=== PATIENT | female | born 1970 | race Caucasian/White ===

== ENCOUNTER 2019-11-02 18:05 | Emergency (ER) | payer OTHER ==
[~2019-11-02] VITALS: Ht 165.1 cm; Wt 77.1 kg
[2019-11-02 19:02] LABS: HEMATOCRIT 39.1 % (37.0-47.0); HEMOGLOBIN 13.1 gm/dL (12.0-15.0); MCH 30.8 pg (26.0-34.0); MCHC 33.5 g/dL (28.0-37.0); MCV 92.1 fL (80.0-100.0); PLATELET COUNT 116 thou/uL (150-400); RBC 4.25 mil/uL (4.20-5.00); RDW 19.6 % (10.5-14.5); WBC 6.9 thou/uL (4.0-11.0)
[2019-11-02 19:04] LABS: CALCIUM 10.6 mg/dL (8.5-10.1); CREATININE 1.1 mg/dL (0.6-1.0); POTASSIUM 3.1 mmol/L (3.5-5.1)
[2019-11-02 19:10] LABS: ALBUMIN 4.2 g/dL (3.4-5.0); DIRECT BILIRUBIN 0.1 mg/dL (<0.1-0.2); TOTAL BILIRUBIN 0.4 mg/dL (<0.1-1.0); TOTAL PROTEIN 8.2 g/dL (6.4-8.2)
[2019-11-02 19:33] LABS: PLATELET ESTIMATE SLIGHTLY DECREASED
[2019-11-02 19:35] LABS: ANISOCYTOSIS 2+; LARGE PLATELETS OCCASIONAL
[2019-11-02] MEDS ORDERED: CHLORDIAZEPOXID25 M1 PO (23:33)
[2019-11-02] MEDS ORDERED: ZOFRAN ODT4 MG PO (23:33)
[2019-11-02] MEDS ORDERED: PHENERGAN 25 MG25 M1 PO (23:33)
[2019-11-02 23:39] VITALS: BP 128/75
[2019-11-03 00:02] LABS: URINE BILIRUBIN NEGATIVE (Negative); URINE BLOOD TRACE (Negative); URINE CLARITY CLEAR; URINE COLOR YELLOW; URINE GLUCOSE-RANDOM* NEGATIVE (Negative); URINE KETONES NEGATIVE (Negative); URINE LEUKOCYTES-REFLEX 3+ (Negative); URINE NITRITE-REFLEX NEGATIVE (Negative); URINE PROTEIN (DIPSTICK) NEGATIVE (Negative); URINE SPECIFIC GRAVITY <= 1.005 (1.005-1.035); URINE UROBILINOGEN 0.2 E.U./dl (0.2-1.0)
[2019-11-03 00:23] LABS: BACTERIA-REFLEX 1-9 Few /HPF (None Seen); CASTS None Seen /LPF (None Seen); CRYSTALS None Seen /LPF (None Seen); MUCUS 0-3 Light strn/LPF (None Seen); SQUAMOUS 0-3 Few /LPF (0-3); URINE RBC 0-2 Rare /HPF (0-2)
[2019-11-03] MEDS ORDERED: KEFLEX500 M1 PO (00:49)
== END 2019-11-03 01:43 | disposition home or self-care (01) ==
LOC: ER 18:05
PROVIDERS: Emergency Medicine
DX: F10.10 Alcohol abuse, uncomplicated (principal); R11.2 Nausea with vomiting, unspecified; Z98.890 Other specified postprocedural states; Y90.9 Presence of alcohol in blood, level not specified

== ENCOUNTER 2019-12-28 21:22 | Emergency (ER) | payer OTHER ==
[~2019-12-28] VITALS: Ht 162.6 cm; Wt 81.7 kg
[~2019-12-28 21:22] MED LIST: CHLORDIAZEPOXID25 M1 PO; KEFLEX500 M1 PO; PHENERGAN 25 MG25 M1 PO; ZOFRAN ODT4 MG PO
[2019-12-28] MEDS ORDERED: CYCLOBENZAPRINE10 MG PO (21:50)
[2019-12-28] MEDS ORDERED: BUPROPION XL300 MG PO (21:51)
[2019-12-28] MEDS ORDERED: SPIRONOLACTONE50 MG PO (21:51)
[2019-12-28] MEDS ORDERED: IBUPROFEN 800800 M1 PO (21:51)
[2019-12-28] MEDS ORDERED: SEROQUEL 100 M100 MG PO (21:53)
[2019-12-28] MEDS ORDERED: AMOXIL 875 MG875 M2 PO (21:53)
[2019-12-28 22:37] LABS: ABSOLUTE NEUTROPHILS 7.2 thou/uL (1.4-8.2); BASOPHILS 0.3 % (0.0-2.0); HEMATOCRIT 37.2 % (37.0-47.0); HEMOGLOBIN 12.5 gm/dL (12.0-15.0); LYMPHOCYTES 7.6 % (24.0-44.0); MCH 31.1 pg (26.0-34.0); MCHC 33.7 g/dL (28.0-37.0); MCV 92.1 fL (80.0-100.0); MONOCYTES 2.9 % (1.0-8.0); PLATELET COUNT 115 thou/uL (150-400); POLYS 89.2 % (36.0-66.0); RBC 4.04 mil/uL (4.20-5.00); RDW 20.1 % (10.5-14.5)
[2019-12-28 22:38] LABS: CALCIUM 9.6 mg/dL (8.5-10.1); CREATININE 1.6 mg/dL (0.6-1.0); POTASSIUM 3.6 mmol/L (3.5-5.1)
[2019-12-28 22:44] LABS: ALBUMIN 3.8 g/dL (3.4-5.0); DIRECT BILIRUBIN 0.4 mg/dL (<0.1-0.2); TOTAL BILIRUBIN 0.7 mg/dL (<0.1-1.0); TOTAL PROTEIN 7.7 g/dL (6.4-8.2)
[2019-12-28 22:59] LABS: URINE BILIRUBIN 1+ (Negative); URINE BLOOD NEGATIVE (Negative); URINE CLARITY CLEAR; URINE COLOR YELLOW; URINE GLUCOSE-RANDOM* NEGATIVE (Negative); URINE KETONES TRACE (Negative); URINE NITRITE-REFLEX NEGATIVE (Negative); URINE PROTEIN (DIPSTICK) TRACE (Negative); URINE SPECIFIC GRAVITY 1.015 (1.005-1.035)
[2019-12-28 23:01] LABS: ICTOTEST (BILI CONFIRMATORY) Negative (Negative); URINE LEUKOCYTES-REFLEX 1+ (Negative)
[2019-12-28 23:10] LABS: BACTERIA-REFLEX 1-9 Few /HPF (None Seen); CASTS None Seen /LPF (None Seen); CRYSTALS None Seen /LPF (None Seen); SQUAMOUS 4-10 Moderate /LPF (0-3); URINE WBC-REFLEX 6-15 Few /HPF (0-5)
[2019-12-28 23:11] LABS: URINE RBC None Seen /HPF (0-2)
[2019-12-28] MEDS ORDERED: ZOFRAN ODT4 MG PO ×2 (23:55→23:56)
[2019-12-29 00:45] VITALS: BP 123/71
== END 2019-12-29 00:35 | disposition home or self-care (01) ==
LOC: ER 21:22
PROVIDERS: Emergency Medicine
DX: A08.4 Viral intestinal infection, unspecified (principal); R11.2 Nausea with vomiting, unspecified; Z79.899 Other long term (current) drug therapy; Z03.818 Encounter for observation for suspected exposure to other biological agents ruled out

== ENCOUNTER 2020-02-12 18:06 | Emergency (ER) | payer OTHER ==
[~2020-02-12] VITALS: Ht 162.6 cm; Wt 81.7 kg
[~2020-02-12 18:06] MED LIST changes: +AMOXIL 875 MG875 M2 PO; +BUPROPION XL300 MG PO; +CYCLOBENZAPRINE10 MG PO; +IBUPROFEN 800800 M1 PO; +SEROQUEL 100 M100 MG PO; +SPIRONOLACTONE50 MG PO
[2020-02-12 19:09] LABS: URINE BILIRUBIN 2+ (Negative); URINE BLOOD 1+ (Negative); URINE CLARITY CLOUDY; URINE COLOR YELLOW; URINE GLUCOSE-RANDOM* NEGATIVE (Negative); URINE KETONES 1+ (Negative); URINE PROTEIN (DIPSTICK) 2+ (Negative)
[2020-02-12 19:10] LABS: ICTOTEST (BILI CONFIRMATORY) Positive (Negative); URINE LEUKOCYTES-REFLEX 3+ (Negative); URINE NITRITE-REFLEX POSITIVE (Negative)
[2020-02-12 19:12] LABS: BACTERIA-REFLEX >30 Many /HPF (None Seen); CASTS None Seen /LPF (None Seen); CRYSTALS None Seen /LPF (None Seen); SQUAMOUS None Seen /LPF (0-3); URINE RBC 3-10 Few /HPF (0-2); URINE WBC-REFLEX >25 Many /HPF (0-5)
[2020-02-12] MEDS ORDERED: ESCITALOPRAM OX20 MG PO (19:39)
[2020-02-12 19:43] LABS: ABSOLUTE NEUTROPHILS 3.2 thou/uL (1.4-8.2); BASOPHILS 0.4 % (0.0-2.0); HEMATOCRIT 40.2 % (37.0-47.0); HEMOGLOBIN 13.5 gm/dL (12.0-15.0); LYMPHOCYTES 15.8 % (24.0-44.0); MCHC 33.7 g/dL (28.0-37.0); MONOCYTES 9.1 % (1.0-8.0); PLATELET COUNT 74 thou/uL (150-400); POLYS 74.7 % (36.0-66.0); RBC 4.36 mil/uL (4.20-5.00); RDW 20.7 % (10.5-14.5); WBC 4.2 thou/uL (4.0-11.0)
[2020-02-12 19:59] LABS: CALCIUM 9.3 mg/dL (8.5-10.1); CREATININE 1.2 mg/dL (0.6-1.0); MAGNESIUM 1.7 mg/dL (1.8-2.4); POTASSIUM 3.3 mmol/L (3.5-5.1)
[2020-02-12] MEDS ORDERED: CHLORDIAZEPOXID25 M1 PO (21:23)
[2020-02-12] MEDS ORDERED: KEFLEX500 M1 PO (22:50)
[2020-02-12 22:57] VITALS: BP 145/94
== END 2020-02-12 22:58 | disposition home or self-care (01) ==
LOC: ER 18:06
PROVIDERS: Emergency Medicine
DX: N39.0 Urinary tract infection, site not specified (principal); F10.10 Alcohol abuse, uncomplicated; R11.2 Nausea with vomiting, unspecified; Z79.2 Long term (current) use of antibiotics; Z79.899 Other long term (current) drug therapy; Y90.0 Blood alcohol level of less than 20 mg/100 ml

== ENCOUNTER 2020-04-17 20:10 | Emergency (ER) | payer OTHER ==
[~2020-04-17] VITALS: Ht 165.1 cm; Wt 79.4 kg
[~2020-04-17 20:10] MED LIST changes: +ESCITALOPRAM OX20 MG PO
[2020-04-17] MEDS ORDERED: NEXIUM 24HR20 M2 PO (20:55)
[2020-04-17] MEDS ORDERED: MONODOX100 MG PO (20:55)
[2020-04-17 22:00] LABS: ABSOLUTE NEUTROPHILS 2.9 thou/uL (1.4-8.2); BASOPHILS 0.3 % (0.0-2.0); EOSINOPHILS 0.3 % (0.0-3.0); HEMATOCRIT 40.5 % (37.0-47.0); HEMOGLOBIN 13.5 gm/dL (12.0-15.0); LYMPHOCYTES 27.9 % (24.0-44.0); MCH 30.7 pg (26.0-34.0); MCHC 33.4 g/dL (28.0-37.0); MONOCYTES 8.8 % (1.0-8.0); PLATELET COUNT 86 thou/uL (150-400); POLYS 62.7 % (36.0-66.0); RDW 20.4 % (10.5-14.5); WBC 4.7 thou/uL (4.0-11.0)
[2020-04-17 22:02] LABS: URINE BILIRUBIN 2+ (Negative); URINE BLOOD 1+ (Negative); URINE CLARITY SL CLOUDY; URINE COLOR YELLOW; URINE GLUCOSE-RANDOM* NEGATIVE (Negative); URINE KETONES 2+ (Negative); URINE PROTEIN (DIPSTICK) 2+ (Negative); URINE SPECIFIC GRAVITY 1.025 (1.005-1.035)
[2020-04-17 22:02] LABS: POTASSIUM 3.5 mmol/L (3.5-5.1)
[2020-04-17 22:05] LABS: APTT 28.2 Seconds (24.5-32.8); PROTIME 10.3 Seconds (9.3-11.4)
[2020-04-17 22:10] LABS: ALBUMIN 4.6 g/dL (3.4-5.0); DIRECT BILIRUBIN 1.1 mg/dL (<0.1-0.2); MAGNESIUM 2.3 mg/dL (1.8-2.4); TOTAL BILIRUBIN 2.4 mg/dL (0.2-1.0); TOTAL PROTEIN 9.2 g/dL (6.4-8.2)
[2020-04-17 22:18] LABS: URINE LEUKOCYTES-REFLEX 2+ (Negative); URINE NITRITE-REFLEX POSITIVE (Negative)
[2020-04-17 22:23] LABS: SQUAMOUS 4-10 Moderate /LPF (0-3)
[2020-04-17 22:24] LABS: CASTS None Seen /LPF (None Seen); CRYSTALS None Seen /LPF (None Seen); MUCUS 4-6 Moderate strn/LPF (None Seen); URINE RBC 3-10 Few /HPF (0-2); URINE WBC-REFLEX 6-15 Few /HPF (0-5)
[2020-04-18] MEDS ORDERED: ZOFRAN ODT4 MG PO (00:41)
[2020-04-18] MEDS ORDERED: CHLORDIAZEPOXID25 M1 PO (00:41)
[2020-04-18 01:07] VITALS: BP 112/75
== END 2020-04-18 01:15 | disposition home or self-care (01) ==
LOC: ER 20:10
PROVIDERS: Emergency Medicine
DX: F10.239 Alcohol dependence with withdrawal, unspecified (principal); K21.9 Gastro-esophageal reflux disease without esophagitis; Z79.899 Other long term (current) drug therapy; Y90.0 Blood alcohol level of less than 20 mg/100 ml